=== PATIENT | male | born 1950 | race Two or more races ===

== ENCOUNTER → 2022-10-21 09:23 | Outpatient (CLI) | payer MEDICARE, SELFPAY ==
--- NOTE | 2022-10-21 09:31 | MR_ITS ---
FINAL REPORT CLINICAL HISTORY: OSTEOLYSIS. abnormal imaging at [facility]. FINDINGS: Multiplanar MR imaging of the brain was performed without and with contrast. There are mild chronic ischemic/gliotic changes. There is no evidence of intracranial hemorrhage or mass. No abnormal extra-axial fluid collection is seen. The ventricular size is within normal limits. There is no evidence of shift of the midline structures. The posterior fossa and brainstem have an unremarkable appearance. No area of abnormal restricted diffusion is identified. There is a focus of abnormal signal and contrast enhancement in the right frontal skull measuring 19 mm with a nonspecific appearance. Normal major vessel vascular flow voids are noted. IMPRESSION: Nonspecific, contrast-enhancing signal abnormality in the right frontal skull which represent metastasis or myeloma. Follow-up MRI in 3-6 months may be helpful for further evaluation. Reviewed, Interpreted and Dictated by Percy Woods III, MD Transcribed by Christine Pompa Authenticated and . [facility]
== END ==
PROVIDERS: PCP Nurse Practitioner Family; Visit Provider Nurse Practitioner Family
DX: M89.58 Osteolysis, other site (principal)
CPT/HCPCS: 70553; A9576

== ENCOUNTER 2023-08-11 08:44 | Outpatient (CLI) | payer MEDICARE, SELFPAY ==
--- NOTE | 2023-08-11 08:53 | CT_ITS ---
FINAL REPORT TECHNIQUE: Axial imaging of the chest was obtained without contrast. This study was performed with techniques to keep radiation doses as low as reasonably achievable, (ALARA). Individualized dose reduction techniques using automated exposure control or adjustment of mA and/or kV according to the patient's size were employed. CLINICAL HISTORY: LUNG NODULE COMPARISON: None FINDINGS: There is minimal scarring in the lung apices. The heart size is normal. There is no pericardial or pleural effusion. Limited images of the upper abdomen are unremarkable. No suspicious infiltrate or nodule identified. IMPRESSION: No acute process. Minimal scarring in the lung apices. Reviewed, Interpreted and Dictated by Joshua Haro MD Transcribed by Theresa Davis Authenticated and [facility]
[2023-08-11 09:12] LABS: Blood Urea Nitrogen 26 mg/dl (9-20); Estimated Glomerular Filt Rate 59 ml/min (>60); GFR (African American) 72 ML/MIN (>60)
--- NOTE | 2023-08-11 09:42 | HMH.ITSTN ---
IV STARTED ON PATIENT FOR CT WITH CONTRAST, AFTER CHECKING ORDER IT WAS FOR A CT WITHOUT CONTRAST, CALLED OFFICE TO VERIFY ORDER IT WAS INDEED WITHOUT CONTRAST. EXPLAINED TO PATIENT AND IV REMOVED, CT PERFORMED WITHOUT CONTRAST.
== END 2023-08-11 23:59 | disposition home or self-care (01) ==
LOC: RAD 08:45
PROVIDERS: PCP Nurse Practitioner Family; Visit Provider Nurse Practitioner Family
DX: R91.1 Solitary pulmonary nodule (principal)
CPT/HCPCS: 36415; 71250; 82565; 84520

== ENCOUNTER 2023-08-25 00:57 | Emergency (ER) | payer MEDICARE, SELFPAY ==
[2023-08-25 00:58] VITALS: BP 177/80; PULSE 76; RESP 17; TEMP 36.3; O2SAT 97; BMI 27.8
--- NOTE | 2023-08-25 01:23 | ED_ITS ---
Discharge Plan Disposition Patient Disposition: Home, Self-Care Prescriptions Prescriptions: New prednisone 20 mg tablet 40 mg PO DAILY 5 Days Qty: 10 0RF Referrals Follow up/Referrals: Irma Solomon APRN [Primary Care Provider] - See instructions Activity Restrictions/Add. Instructions Additional Instructions/Restrictions: You were evaluated in the emergency department today. At this time, it is felt that you likely have a contact dermatitis from the plants that you were exposed to. We have provided you with a prescription for steroids. Sometimes long steroid courses are required to prevent rebound symptoms, so I would recommend following up with your primary care doctor later on this week for reassessment to see if she feels that your prescription needs to be extended. Monitor for any worsening in symptoms or swelling despite taking these medications. Return to the emergency department for new or worsening symptoms. It is also important to note that you can sometimes develop a secondary bacterial infection or cellulitis after having inflammation and irritation of your skin like this. This is another reason to keep an eye on your symptoms and swelling. Clinical Impressions Clinical Impression: Contact dermatitis Instructions Patient Instructions: DI for Contact Dermatitis Discharge ED Provider: Ceci Hayden General Adult HPI General Chief complaint: Extremity Problem,Nontraumatic Stated complaint: right hand swelling, Time Seen by Provider: 08/25/23 01:03 Mode of Arrival: Ambulatory Source of Information: Patient Limitations: No Limitations Description of Symptoms (Recalled from ER Triage Doc. by RN): patient ambulatory to ED with complaints of right arm/hand swelling since Friday without relief. He states that he was weedeating when he thinks something bit his arm. unable to state what he thinks bit him, or locate area to which it originated. He reports that he has taken benedryl without decrease in swelling. Patient denies SOA or any other symptoms at this time. History of Present Illness HPI narrative: This patient is a 73-year-old male with history of hypertension and hyperlipidemia presented to the emergency department for evaluation with concern for swelling of his right hand and arm. Patient reports that he was weed eating Friday when he got into some brush that he believes may have been poison oak. He is not sure if that is what the cause may be or if something could have bitten him. He states he has had itching and irritation to the skin of his shoulders as well as his right arm since Friday. He is taking Benadryl at home with minimal improvement. He has significant swelling of his right arm. No fevers, chills, chest pain, shortness of breath, or other concerns. No history of blood clots or clotting disorders. Related Data Previous Rx's Medication Instructions Recorded prednisone 20 mg tablet 40 mg (2 x 20 mg) PO DAILY 5 days 08/25/23 #10 tabs Allergies Allergy/AdvReac Type Severity Reaction Status Date / Time Penicillins Allergy Mild Verified 08/25/23 01:44 [facility] Disclaimer: The information contained in this section may have been updated after the patient was seen, as this information can be updated by other users. Social History Smoking Status: Former smoker alcohol intake: never current occupational status: retired Travel in the last 8 weeks: None ROS Obtained: Yes All systems reviewed & no additional complaints except as documented Physical Exam General General appearance: alert and in no apparent distress Head Head exam: atraumatic and normocephalic Eye Eye exam: Present normal appearance, PERRL and EOMI ENT ENT exam: Present normal exam, normal oropharynx, mucous membranes moist and normal external ear exam Neck Neck exam: Present normal inspection, full ROM and trachea midline; Absent tenderness Chest Chest inspection: Present normal inspection and symmetric chest wall rise; Absent tenderness Respiratory Respiratory exam: Present normal lung sounds bilaterally; Absent respiratory distress, wheezes, stridor or accessory muscle use Cardiovascular Cardiovascular exam: Present regular rate and normal rhythm Abdominal Exam Abdominal exam: Present soft; Absent distention, tenderness or guarding Extremities Exam Extremities exam: Present full ROM, normal capillary refill and edema (Significant edema to the right hand and forearm. No erythema or warmth with some overlying excoriations. Neurovascularly intact distally with intact range of motion of his hand. No palpable fluctuance or induration.); Absent tenderness Back Exam Back exam: Present normal inspection and full ROM; Absent tenderness Neurological Exam Neurological exam: Present alert, oriented X3, CN II-XII intact and normal gait; Absent motor sensory deficit Psychiatric Psychiatric exam: Present normal affect and normal mood Skin Skin exam: Present warm, dry and rash (scattered excoriations to R forearm) Medical Decision Making Medical Records Medical records reviewed: Yes I reviewed the patient's medical records. Harley Inquiry Pt receiving controlled substance: No Vital Signs: 08/25/23 00:58 08/25/23 01:58 Temperature 97.4 F L 97.8 F Temperature Source Oral Oral Pulse Rate 61 Pulse Rate [Right] 76 Respiratory Rate 17 16 Blood Pressure 159/58 H Blood Pressure [Right Arm] 177/80 H Blood Pressure Mean [Right Arm] 112 Blood Pressure Source Automatic Cuff Blood Pressure Source [Right Arm] Automatic Cuff Blood Pressure Position Sitting 02 Sat by Pulse Oximetry 97 Oxygen Delivery Method Room Air Room Air Lab Data Lab results reviewed: Yes I reviewed the patient's lab results. Lab Results 08/25/23 01:05: WBC 5.6, RBC 4.19 L, Hgb 13.0 L, Hct 39.8 L, MCV 95.0 H, MCH 30.9, MCHC 32.6, RDW 15.1, Plt Count 178, MPV 8.2, Neut % (Auto) 71.6, Lymph % (Auto) 20.9, [place] % (Auto) 6.6, Eos % (Auto) 0.3, Baso % (Auto) 0.5, Neut # (Auto) 4.0, Lymph # (Auto) 1.2, [place] # (Auto) 0.4, Eos # (Auto) 0.0, Baso # (Auto) 0.0, Sodium 139, Potassium 4.3, Chloride 112 H, Carbon Dioxide 25, Anion Gap 6.3, BUN 29 H, Creatinine 1.30 H, Estimated Creat Clear 60, Estimated GFR 54 L, Est GFR ( Amer) 65, Glucose 108 H, Calcium 8.6, Total Bilirubin 0.8, AST 33, ALT 21, Alkaline Phosphatase 109, C-Reactive Protein 7.1 H, Total Protein 6.4, Albumin 3.9, Globulin 2.5, Albumin/Globulin Ratio 1.6 08/25/23 01:05 08/25/23 01:05 Orders (Tests/Meds): ED MEDICATIONS Discontinued Medications Generic Name Dose Route Start Last Admin Trade Name Freq PRN Reason Stop Dose Admin Prednisone 40 mg 08/25/23 01:43 08/25/23 01:49 Prednisone 20mg Tab PO 08/25/23 01:44 40 mg ONCE ONE Administration ORDERS Category Date Time Status POCUS Point of Care (ER Only) Stat Exams 08/25/23 01:08 Ordered CRP [C-Reactive Protein] Stat Lab 08/25/23 01:05 Completed Complete Blood Count Auto Diff Stat Lab 08/25/23 01:05 Results Comprehensive Metabolic Panel Stat Lab 08/25/23 01:05 Completed Erythrocyte Sedimentation Rate Stat Lab 08/25/23 01:05 Results Medical Decision Narrative: In summary, this patient is a 73-year-old male presenting to the Emergency Department for evaluation of swelling of his right arm as well as rash and itchiness. Differential diagnoses considered include but are not limited to insect bite, contact dermatitis, cellulitis, DVT. Ruling out the most morbid conditions drove assessment. It should be noted patient's history includes hypertension and hyperlipidemia which may or may not be at goal therapy. This complicates all aspects of care by increasing patient's risk for morbidity. On exam, the patient is well-appearing. He has isolated swelling to his right hand and forearm with some excoriations over his right forearm. All compartments soft. Neurovascular intact distally. No significant induration or fluctuance. workup included CBC, CMP, ESR, CRP, and bedside ultrasound. Ultrasound is negative for DVT of the right upper extremity. Veins are good and compressible. Please see procedure note for further documentation. He does have cobblestoning consistent with localized edema but no appreciable abscesses. Labs are reassuring with no significant leukocytosis. CRP is at the upper limits of normal. Based on labs and exam, no concerns for significant infection. I do feel that he likely has contact dermatitis in the setting of the recent plant exposures. At this time after shared decision-making with the patient, I feel that he is appropriate for discharge home with prescription for prednisone. He was given instructions for close follow-up with his primary care provider this week, as significant contact dermatitis often requires a long steroid taper to prevent rebound symptoms. I advise discussion with his primary care provider regarding this. I also advised to monitor for any worsening symptoms, as it is possible he could develop a secondary bacterial infection at some point. Patient is given strict return precautions and he was discharged in stable condition after all questions were answered. Procedures Limited Ultrasound Findings:: Limited soft tissue ultrasound Indication: Soft tissue swelling Identified structures: Location: Right hand/forearm Findings: Cobblestoning consistent with localized edema Impression: Cobblestoning consistent with localized edema Images were saved to permanent archive The study was technically adequate Soft Tissue CPT Codes: CPT Upper extremity: 66879-42 This study was performed by me, and I personally interpreted all images/videos. Based on my clinical judgement, these images were adequate and not necessitate further imaging. Interpretation:: Limited DVT ultrasound Indication: Limited compression ultrasonography of the right upper extremity was performed to evaluate for non-compressibility of the deep veins in the patient. The ultrasound was performed with the following indications, as noted in the H&P: Right arm swelling Identified structures: Right [Ulnar vein, radial vein, cephalic vein, basilic vein, axillary vein.] Findings: Upper extremity: Right UV: Good compressibility Right RV: Good compressibility Right Cephalic vein: Good compressibility Right Basilic vein: Good compressibility Right Axillary vein: Good compressibility Impression: Normal right upper extremity DVT ultrasound Images were saved to permanent archive The study was technically adequate CPT: 71273-34-OY [id number] This study was performed by me, and I personally interpreted all images/videos. Based on my clinical judgement, these images were adequate and did not necessitate further imaging. Critical Care Critical Care Time Critical Care Time: No
[2023-08-25 01:24] LABS: Basophils % 0.5 % (0.1-2.0); Chloride 112 mmol/L (98-107); Eosinophils % 0.3 % (0.1-12.0); Hematocrit 39.8 % (42.0-52.0); Lymphocytes # 1.2 K/mm3 (0.7-4.5); Lymphocytes % 20.9 % (10-50); Mean Corpuscular HGB Conc 32.6 g/dL (31.8-35.4); Mean Corpuscular Hemoglobin 30.9 pg (27.0-31.2); Mean Platelet Volume 8.2 fl (7.4-10.4); Monocytes # 0.4 K/mm3 (0.1-1.0); Monocytes % 6.6 % (1.7-9.3); Neutrophils % 71.6 % (37.0-80.0); Platelet Count 178 K/mm3 (142-424); Potassium 4.3 mmoL/L (3.5-5.1); Red Blood Count 4.19 M/mm3 (4.60-6.20); Red Cell Distribution Width 15.1 % (11.5-17.5); Sodium 139 mmol/L (136-145); White Blood Count 5.6 K/mm3 (4.8-10.8)
[2023-08-25 01:26] LABS: Alanine Aminotransferase 21 U/L (12-78); Aspartate Amino Transferase 33 U/L (17-59); Blood Urea Nitrogen 29 mg/dl (9-20); Creatinine Clearance Estimated 60 mL/min (50-200); Estimated Glomerular Filt Rate 54 ml/min (>60); GFR (African American) 65 ML/MIN (>60)
[2023-08-25 01:27] LABS: Albumin Level 3.9 g/dl (3.5-5.0); Albumin/Globulin Ratio 1.6 (1.1-1.8); Alkaline Phosphatase 109 U/L (38-126); Anion Gap 6.3 mEq/L (5-15); Bilirubin,Total 0.8 mg/dl (0.2-1.3); Calcium 8.6 mg/dl (8.4-10.2); Carbon Dioxide 25 mmol/L (22.0-30.0); Globulin 2.5 g/dL (1.3-3.2); Glucose 108 mg/dl (74-100); Total Protein,Serum 6.4 g/dl (6.3-8.2)
[2023-08-25 01:32] LABS: C-Reactive Protein 7.1 mg/L (0-4)
[2023-08-25] MEDS: predniSONE 20MG TAB 40 MG PO (01:49)
--- NOTE | 2023-08-25 01:54 | PC.NURSE ---
on phone with JULIANA
[2023-08-25 01:58] VITALS: BP 159/58; PULSE 61; RESP 16; TEMP 36.6; O2SAT 94
[2023-08-25 02:22] LABS: Erythrocyte Sedimentation Rate 16 mm/hr (0-20)
== END 2023-08-25 01:58 | disposition home or self-care (01) ==
PROVIDERS: Emergency Provider Emergency Medicine; PCP Nurse Practitioner Family
DX: L25.9 Unspecified contact dermatitis, unspecified cause (principal); R22.31 Localized swelling, mass and lump, right upper limb; I10 Essential (primary) hypertension; E78.5 Hyperlipidemia, unspecified
CPT/HCPCS: 80053; 85025; 85651; 86140; 99284

== ENCOUNTER 2024-03-29 16:48 | Outpatient (CLI) | payer MEDICARE, SELFPAY ==
[2024-03-29 15:23] LABS: Microscopic, Urine URINE MICROSCOPIC (MICROSCOPIC)
[2024-03-29 15:59] LABS: Appearance,Urine CLEAR (Clear); Bilirubin,Urine Negative (Negative); Blood, Urine Negative (Negative); Color,Urine YELLOW (Yellow); Glucose,Urine (UA) Negative (Negative); Ketones,Urine Negative (Negative); Leukocyte Esterase,Urine 1+ (Negative); Nitrate,Urine Negative (Negative); Protein,Urine Negative (Negative); Urobilinogen,Urine 0.2 EU/dl (0.2)
[2024-03-29 16:39] LABS: Bacteria,Urine 2+ /lpf
== END 2024-03-29 23:59 | disposition home or self-care (01) ==
LOC: LAB.DROPOF 16:48
PROVIDERS: PCP Urology; Visit Provider Urology
DX: N39.0 Urinary tract infection, site not specified (principal)
CPT/HCPCS: 81001; 87086; 87088; 87186

== ENCOUNTER 2024-04-05 10:55 | Outpatient (CLI) | payer MEDICARE, SELFPAY ==
[2024-04-05 11:51] LABS: Blood Urea Nitrogen 32 mg/dl (9-20); Estimated Glomerular Filt Rate 54 ml/min (>60); GFR (African American) 65 ML/MIN (>60)
[2024-04-06 08:52] LABS: PSA, Free 0.42 ng/mL; Prostate Specific Ag 2.3 ng/mL (0.0-4.0)
== END 2024-04-05 23:59 | disposition home or self-care (01) ==
LOC: LAB 10:56
PROVIDERS: PCP Nurse Practitioner Family; Visit Provider Urology
DX: N40.2 Nodular prostate without lower urinary tract symptoms (principal); N42.89 Other specified disorders of prostate; N39.0 Urinary tract infection, site not specified
CPT/HCPCS: 36415; 82565; 84153; 84154; 84520

== ENCOUNTER 2024-08-23 16:00 | Outpatient (CLI) | payer MEDICARE, SELFPAY ==
[2024-08-23 14:40] LABS: Microscopic, Urine URINE MICROSCOPIC (MICROSCOPIC)
[2024-08-23 15:12] LABS: Appearance,Urine CLEAR (Clear); Bilirubin,Urine Negative (Negative); Blood, Urine TRACE-L (Negative); Color,Urine YELLOW (Yellow); Glucose,Urine (UA) Negative (Negative); Ketones,Urine Negative (Negative); Leukocyte Esterase,Urine 1+ (Negative); Nitrate,Urine Negative (Negative); Protein,Urine TRACE (Negative)
[2024-08-23 15:55] LABS: Bacteria,Urine Trace /lpf; RBC,Urine Occasional #/hpf (0-3)
== END 2024-08-23 23:59 | disposition home or self-care (01) ==
LOC: LAB.DROPOF 08-24 10:59
PROVIDERS: PCP Urology; Visit Provider Urology
DX: N39.0 Urinary tract infection, site not specified (principal)
CPT/HCPCS: 81001; 87086

== ENCOUNTER 2024-08-25 10:22 | Outpatient (CLI) | payer MEDICARE, SELFPAY ==
--- OUTSIDE RECORDS SUMMARY | 2024-08-25 10:25 | XMS_ITS | Data Portability ---
Author Organization [facility] CHERELLE Juarez [place] CLOSED Address [address] [place] [address] Care Team Providers Care Orchestra Director Name Role Phone HARLEY ESCALONA Primary Care Provider Assessment Encounter Date Assessment Date Assessment LastModified by Organization Details LastModified Time 04/09/2021 04/09/2021 SURGERY DATE: PREOPERATIVE DIAGNOSIS: Elevated PSA. POSTOPERATIVE DIAGNOSIS: Elevated PSA. PROCEDURE: Transrectal ultrasound biopsy of the prostate. SURGEON: Camden Tong MD OPERATIVE NOTE: The patient was placed on his left side. Ultrasound probe was inserted without difficulty. 1% xylocaine was injected at the base of the prostate on both sides. Prostate measured 41.5 mm in width, 26.6 mm in height, length 38 mm, volume was 22 cm3. Six random biopsies were taken from the left and 6 random biopsies were taken from the right. There was minimal bleeding. Ultrasound probe was removed. The patient tolerated the procedure well, left the operating room in satisfactory condition. [email or web address] Not available 04/09/2021 14:21:48 Plan of Treatment Reminders Order Date Submit Date Provider Last Modified By Organization Details Last Modified Time Details Appointments None recorded . Lab urinalys is panel, auto 2020 021 [facility], [address], [facility] [address], [place], [address], 13:38:49 Referral None recorded . Procedures biopsy, prostate , needle (PROC) - 83044, 47949, 40542 -- PROSTATE BIOPSY -- LOCAL 2020 021 ana [facility], [address] [facility] [address] [facility], [facility] [address], [place], [address], 12:43:08 Surgeries None recorded . Imaging None recorded . Medication Orders levoflox acin 500 mg tablet 2020 021 SAMANTHA [facility], [address], [place], [address], 10:43:02 Patient TargetsNo targets recorded. Patient Instructions Encounter Date Encounter Id Patient Instructions Last Modified By Organization Details Last Modified Time 04/12/2021 [id number] learning about healthy weight cinthiaadnathan Not available 04/12/2021 16:01:24 Reason for Referral None Reported. Results Created Date Observation Date Name Description Value Unit Range Abnormal Flag Note LastModifiedBy Organization Detail LastModifiedTime 03/27/20 21 03/27/2021 urina lysis panel , auto Unknown Analyte Clean Catch Not Available [facility] [address], [place], [address], 03/27/2021 10:54:39 03/27/20 21 03/27/2021 urina lysis panel , auto Unknown Analyte Yellow Not Available [facility] [address], [place], [address], 03/27/2021 10:54:39 03/27/20 21 03/27/2021 urina lysis panel , auto Unknown Analyte Clear Not Available [facility] [address], [place], [address], 03/27/2021 10:54:39 03/27/20 21 03/27/2021 urina lysis panel , auto Unknown Analyte 1.005 Not Available [facility] [address], [place], [address], 03/27/2021 10:54:39 03/27/20 21 03/27/2021 urina lysis panel , auto Unknown Analyte 1.003- 1.035 Not Available [facility] [address], [place], [address], 03/27/2021 10:54:39 03/27/20 21 03/27/2021 urina lysis panel , auto Unknown Analyte 7.0 Not Available [facility] [address], [place], [address], 03/27/2021 10:54:39 03/27/2003/27/2021 urina lysis panel , auto Unknown Analyte 5.0-8. 0 Not Available [facility] [address], [place], [address], 03/27/2021 10:54:39 03/27/20 21 03/27/2021 urina lysis panel , auto Unknown Analyte Negati ve Not Available [facility] [address], [place], [address], 03/27/2021 10:54:39 03/27/20 21 03/27/2021 urina lysis panel , auto Unknown Analyte Negati ve Not Available [facility] [address], [place], [address], 03/27/2021 10:54:39 03/27/20 21 03/27/2021 urina lysis panel , auto Unknown Analyte Negati ve Not Available [facility] [address], [place], [address], 03/27/2021 10:54:39 03/27/20 21 03/27/2021 urina lysis panel , auto Unknown Analyte Negati ve Not Available [facility] [address], [place], [address], 03/27/2021 10:54:39 03/27/20 21 03/27/2021 urina lysis panel , auto Unknown Analyte Negati ve Not Available [facility] [address], [place], [address], 03/27/2021 10:54:39 03/27/2003/27/2021 urina lysis panel , auto Unknown Analyte Negati ve Not Available [facility] [address], [place], [address], 03/27/2021 10:54:39 03/27/20 21 03/27/2021 urina lysis panel , auto Unknown Analyte Normal Not Available [facility] [address], [place], [address], 03/27/2021 10:54:39 03/27/20 21 03/27/2021 urina lysis panel , auto Unknown Analyte Normal Not Available [facility] [address], [place], [address], 03/27/2021 10:54:39 03/27/20 21 03/27/2021 urina lysis panel , auto Unknown Analyte Negati ve Not Available [facility] [address], [place], [address], 03/27/2021 10:54:39 03/27/20 21 03/27/2021 urina lysis panel , auto Unknown Analyte Negati ve Not Available [facility] [address], [place], [address], 03/27/2021 10:54:39 03/27/20 21 03/27/2021 urina lysis panel , auto Unknown Analyte 1 mg/dl Not Available [facility] [address], [place], [address], 03/27/2021 10:54:39 03/27/20 21 03/27/2021 urina lysis panel , auto Unknown Analyte Normal 1 mg/dl Not Available [facility] [address], [place], [address], 03/27/2021 10:54:39 03/27/20 21 03/27/2021 urina lysis panel , auto Unknown Analyte Negati ve Not Available [facility] [address], [place], [address], 03/27/2021 10:54:39 03/27/20 21 03/27/2021 urina lysis panel , auto Unknown Analyte Negati ve Not Available [facility] [address], [place], [address], 03/27/2021 10:54:39 03/27/20 21 03/27/2021 urina lysis panel , auto Unknown Analyte Negati ve Not Available [facility] [address], [place], [address], 03/27/2021 10:54:39 03/27/20 21 03/27/2021 urina lysis panel , auto Unknown Analyte Negati ve Not Available [facility] [address] [facility] [address], [place], [address], 03/27/2021 10:54:39 04/09/20 21 04/09/2021 SURGI PAT surgical SEE BELOW Depar tment of Patho logy Surgi pat Patho logy Repor t NAME: CARINE BISWAS PATH. :SS-2 1-123 12 Copy to: Diagn osis: A) Right prost ate, needl e core biops y: - Benig n prost atic tissu e B) Left prost ate, needl e core biops y: - Benig n prost atic tissu e SOURC E OF SPECI MEN: PROST ATE , RIGHT PROST ATE , LEFT CLINI PAT INFOR MATIO N: PROST ATE NODUL E / PSA LEVEL - 3.53 Gross Descr iptio n: A) Recei alexis in forma juan label ed with the patie nt's name and desig nated as righ t prost ate biops y are eight thin cores of jones-w kirby tissu e measu ring 0.3, 0.5, (2)1. 4, 1.5, 1.6, 1.7 and 2.0 cm in lengt h. Entir sheng submi tted in two casse ttes. B) Recei alexis in forma juan label ed with the patie nt's name and desig nated as left prost ate biops y are seven thin cores of jones-w kirby tissu e measu ring 0.2, (2)1. 6, 1.9, (2)2. 0 and 2.1 cm in lengt h. Entir sheng submi tted in two casse ttes. MT 04/09 02:40 PM Micro scopi c Descr iptio n: Micro scopi c exami natio n perfo rmed. Rare atypi pat acini are seen. PIN4 immun ohist ochem ical stain s revie wed with a prope rly worki ng contr ol are negat landry for adeno carci noma. This test was devel oped and its perfo rmanc e corey cteri stics deter mined by the [facility] . It has not been clear ed or appro alexis by the [place] Food and Drug Admin istra tion (FDA) . The FDA has deter mined that such clear ance or appro heath is not neces linda. These tests are used solel y for clini pat purpo ses. They shoul d not be regar ded as inves tigat ional or for resea rch. This labor atory is regul ated under the Clini pat Labor atory Impro vemen t Amend ments of 1987 (CLIA ' 88), as quali fied to perfo rm high compl exity testi ng. JAYCOB TRAVISSHENG DUNAWAY MD Shy d Out Date: 04/10 14:44 Page 1 of 1 Not Available [facility] [address] [place], [address], 04/10/2021 14:45:47 Result Notes None recorded. Procedures Surgical History Date Name Laterality Status Provider Name and Address Organization Details Recorded Time partial repair of rotator cuff completed [facility] 03/27/2021 10:53:50 Back Surgery completed [facility] 03/27/2021 10:53:55 Imaging Results None recorded. Procedure Notes None recorded. Medical Equipment None Reported. Allergies Allergen ID Allergen Name Allergen Category Reaction Reaction Severity Criticality Documentation Date Start Date Code Code System Note Provider Name and Address Organization Details Recorded Time 164020 Product containin g penicilli n (product) medicatio n Not available Not available Not available 03/27/2021 06276 8001 SNOMED [facility] 10:52:52 Medications Name Sig Start Date Stop Date Status Note LastModified by Organization Details LastModified Time levofloxacin 500 mg tablet Take 1 tablet every 24 hours by oral route. 021 active Not Available Not Available Not Avai lable Vitamin C active Not Available Not Alma Delia ilable Not Available IBU active Not Available Not Availa ble Not Available Vitals Date Recorded Body height Body mass index (BMI) Body weight Provider Name and Address Organization Details Last Updated DateTime 03/27/2021 177.8 cm 26.4 kg/m2 [id number] yessenia Fraga [facility] 03/27/2021 10:52:45 Date Recorded Body height Body mass index (BMI) Body weight Provider Name and Address Organization Details Last Updated DateTime 04/12/2021 177.8 cm 26.4 kg/m2 [id number] [facility] 04/12/2021 15:47:24 Social History Question Answer Notes LastModified by Organizat ion Details LastModified Time Tobacco Smoking Status Never Smoker [facility] 03/27/2021 10:53:37 What Is Your Level Of Alcohol Consumption? Occasional Information not available 03/27/2021 Do You Or Have You Ever Used E-cigarettes Or Vape? Never Used Electronic Cigarettes Information not available 03/27/2021 What Was The Date Of Your Most Recent Tobacco Screening? 04/12/2021 [email or web address] Information not available 04/12/2021 What Is Your Relationship Status? Information not available 03/27/2021 Do You Or Have You Ever Used Smokeless Tobacco? Currently Chews Tobacco Information not available 03/27/2021 Do You Or Have You Ever Used Any Other Forms Of Tobacco Or Nicotine? Yes Information not available 03/27/2021 Sex: Unknown Functional Status None recorded. Mental Status None recorded. Family History Relationship Description Onset Age of this Age Resolved Age Notes LastModified by Organization Details LastModified Time Unspecified Relation Diabetes mellitus Not available 2020 10:53:15 Medical History Condition Response Allergies/Hayfever Y Acid Reflux (GERD) Y Arthritis Y Hypertension Y Thyroid Disorder Y Past Encounters Encounter ID Performer Location Encounter Start Date Encounter Closed Date Diagnosis/Indication Diagnosis SNOMED-CT Code Diagnosis ICD10 Code Diagnosis Note [id number] MD [facility] [address] [place] [address] 03/27/2021 09:18:00 03/27/2021 10:42:35 Prostate nodule 1267422939 36696 N40.2 [id number] CAMDEN TONG MD SURGERY SCHEDULE [address] [place] [address] 04/09/2021 09:05:16 04/09/2021 09:05:39 [id number] MD [facility] [address] [place] [address] 04/12/2021 15:43:54 04/12/2021 15:56:47 Prostate nodule 5898759264 83332 N40.2 Benign pro static hyperplasia without outflow obstruction 242990073 N40.0 Health Concerns Section Related Observation LastModified by Organization Detai ls LastModified Time None Recorded Concern Status LastModified by Organization Details LastModified Time None Recorded Advance Directives Directive None Recorded Payers Insurance Date Sequence Insurance Name Policy Number Policy Thurston Covered Member ID Thurston Member ID Guarantor Name 04/09/2021 1 [place] Carine Peters [id number] Carine Peters 04/18/2021 2 [facility] (MEDICARE SUPPLEMENT) Carine Peters [id number] Carine Peters Notes Date Note Type Note Provider Name and Address Organization Details Recorded Time 03/27/2021 text/html 70-year-old gentleman who had a recent colonoscopy. Prostate nodule was discovered. PSAs 3..53 There is no history of previous prostate problems.he voids with a good stream and feels like he empties his bladder easily. There is no hesitancy or urgency. He denies nocturia. There is no back or abdominal pain CAMDEN TONG MD [address] [place] [address], [address], [facility] 03/27/2021 13:04:28 04/12/2021 text/html prostate biopsie s were negative his PSA was 3.53. Prostate nodule was found. He voids with a good stream not have any hematuria or dysuria. There is no hesitancy or urgency. We will reevaluate in 6 months CAMDEN TONG MD [address] [place] [address], [address], [facility] 04/12/2021 16:02:03
--- NOTE | 2024-08-25 10:30 | US_ITS ---
FINAL REPORT TECHNIQUE: Sonographic images of the testicles and scrotum were obtained in the longitudinal and transverse planes. CLINICAL HISTORY: Left testicle swelling -- recent UTI COMPARISON: None FINDINGS: The right testicle measures 4.8 x 2.4 x 3.1 centimeters. There is no intratesticular mass. The epididymis is within normal limits. No extratesticular mass is identified. Blood flow is present. There is no evidence of torsion. The left testicle measures 4.1 x 2.1 x 3.0 centimeters. There is no intratesticular mass. The epididymis is within normal limits. No extratesticular mass is identified. There is a small left hydrocele. There is mild left scrotal skin thickening. There is no evidence of torsion. IMPRESSION: No intratesticular mass or evidence of testicular torsion. Small left hydrocele and left scrotal edema, inflammatory process not excluded. Reviewed, Interpreted and Dictated by Liz Quach MD Transcribed by Ludmila Strickland Authenticated and [facility]
== END 2024-08-25 23:59 | disposition home or self-care (01) ==
LOC: RAD 10:23
PROVIDERS: PCP Nurse Practitioner Family; Visit Provider Urology
DX: N45.1 Epididymitis (principal)
CPT/HCPCS: 76870

== ENCOUNTER 2024-08-30 10:45 | Outpatient (CLI) | payer MEDICARE, SELFPAY ==
--- OUTSIDE RECORDS SUMMARY | 2024-08-30 10:48 | XMS_ITS | Data Portability ---
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 Procedures biopsy, prostate , needle (PROC) - 14661, 63987, 59953 -- PROSTATE BIOPSY -- LOCAL 2020 021 ana [facility] Professional Charges, [address], [facility] [address], [place], [address], 12:43:08 Surgeries None recorded . Imaging None recorded . Medication Orders levoflox acin 500 mg tablet 2020 021 SAMAN[facility], [address], [place], [address], 10:43:02 Patient TargetsNo targets recorded. Patient Instructions Encounter Date Encounter Id Patient Instructions Last Modified By Organization Details Last Modified Time 04/12/2021 [id number] learning about healthy weight cinthiaadnathan Not available 04/12/2021 16:01:24 Reason for Referral None Reported. Results Created Date Observation Date Name Description Value Unit Range Abnormal Flag Note LastModifiedBy Organization Detail LastModifiedTime 03/27/20 21 03/27/2021 urina lysis panel , auto Unknown Analyte Clean Catch Not Available [facility] [address], [place], [address], 03/27/2021 10:54:39 03/27/20 21 03/27/2021 urina lysis panel , auto Unknown Analyte Yellow Not Available [facility] [address], [place], [address], 03/27/2021 10:54:39 03/27/20 21 03/27/2021 urina lysis panel , auto Unknown Analyte Clear Not Available [facility] [address], [place], [address], 03/27/2021 10:54:39 03/27/20 21 03/27/2021 urina lysis panel , auto Unknown Analyte 1.005 Not Available [facility] [address], [place], [address], 03/27/2021 10:54:39 03/27/20 21 03/27/2021 urina lysis panel , auto Unknown Analyte 1.003- 1.035 Not Available [facility] [address], [place], [address], 03/27/2021 10:54:39 03/27/20 21 03/27/2021 urina lysis panel , auto Unknown Analyte 7.0 Not Available [facility] [address], [place], [address], 03/27/2021 10:54:39 03/27/2003/27/2021 urina lysis panel , auto Unknown Analyte 5.0-8. 0 Not Available [facility] [address], [place], [address], 03/27/2021 10:54:39 03/27/20 21 03/27/2021 urina lysis panel , auto Unknown Analyte Negati ve Not Available [facility] [address], [place], [address], 03/27/2021 10:54:39 03/27/20 21 03/27/2021 urina lysis panel , auto Unknown Analyte Negati ve Not Available [facility] [address], [place], [address], 03/27/2021 10:54:39 03/27/20 21 03/27/2021 urina lysis panel , auto Unknown Analyte Negati ve Not Available [facility] [address], [place], [address], 03/27/2021 10:54:39 03/27/20 21 03/27/2021 urina lysis panel , auto Unknown Analyte Negati ve Not Available [facility] [address], [place], [address], 03/27/2021 10:54:39 03/27/20 21 03/27/2021 urina lysis panel , auto Unknown Analyte Negati ve Not Available [facility] [address], [place], [address], 03/27/2021 10:54:39 03/27/2003/27/2021 urina lysis panel , auto Unknown Analyte Negati ve Not Available [facility] [address], [place], [address], 03/27/2021 10:54:39 03/27/20 21 03/27/2021 urina lysis panel , auto Unknown Analyte Normal Not Available [facility] [address], [place], [address], 03/27/2021 10:54:39 03/27/20 21 03/27/2021 urina lysis panel , auto Unknown Analyte Normal Not Available [facility] [address], [place], [address], 03/27/2021 10:54:39 03/27/20 21 03/27/2021 urina lysis panel , auto Unknown Analyte Negati ve Not Available [facility] [address], [place], [address], 03/27/2021 10:54:39 03/27/20 21 03/27/2021 urina lysis panel , auto Unknown Analyte Negati ve Not Available [facility] [address], [place], [address], 03/27/2021 10:54:39 03/27/20 21 03/27/2021 urina lysis panel , auto Unknown Analyte 1 mg/dl Not Available [facility] [address], [place], [address], 03/27/2021 10:54:39 03/27/20 21 03/27/2021 urina lysis panel , auto Unknown Analyte Normal 1 mg/dl Not Available [facility] [address], [place], [address], 03/27/2021 10:54:39 03/27/20 21 03/27/2021 urina lysis panel , auto Unknown Analyte Negati ve Not Available [facility] [address], [place], [address], 03/27/2021 10:54:39 03/27/20 21 03/27/2021 urina lysis panel , auto Unknown Analyte Negati ve Not Available [facility] [address], [place], [address], 03/27/2021 10:54:39 03/27/20 21 03/27/2021 urina lysis panel , auto Unknown Analyte Negati ve Not Available [facility] [address], [place], [address], 03/27/2021 10:54:39 03/27/20 21 03/27/2021 urina lysis panel , auto Unknown Analyte Negati ve Not Available [facility] [address] [facility] [facility] [address], [place], [address], 03/27/2021 10:54:39 04/09/20 21 04/09/2021 SURGI PAT [...] [facility] [address] [place], [address], 04/10/2021 14:45:47 Result Notes None recorded. Procedures Surgical History Date Name Laterality Status Provider Name and Address Organization Details Recorded Time partial repair of rotator cuff completed [facility] 03/27/2021 10:53:50 Back Surgery completed [facility] 03/27/2021 10:53:55 Imaging Results None recorded. Procedure Notes None recorded. Medical Equipment None Reported. Allergies Allergen ID Allergen Name Allergen Category Reaction Reaction Severity Criticality Documentation Date Start Date Code Code System Note Provider Name and Address Organization Details Recorded Time 252634 Product containin g penicilli n (product) medicatio n Not available Not available Not available 03/27/2021 [id number] [id number] SNOMED [facility] 10:52:52 Medications Name Sig Start Date Stop [...] Updated DateTime 03/27/2021 177.8 cm 26.4 kg/m2 [id number] yessenia Fraga [facility] 03/27/2021 10:52:45 Date Recorded Body height Body mass index (BMI) Body weight Provider Name and Address Organization Details Last Updated DateTime 04/12/2021 177.8 cm 26.4 kg/m2 44776 yessenia Jon [facility] 04/12/2021 15:47:24 Social History Question Answer Notes LastModified by Organizat [employer] Details LastModified Time Tobacco Smoking Status Never Smoker Lia Fraga [facility] 03/27/2021 10:53:37 What Was The Date Of Your Most Recent Tobacco Screening? 04/12/2021 [email or web address] Information not available 04/12/2021 What Is Your Relationship Status? Information not available 03/27/2021 Sex: Unknown Functional Status Question Answer Note LastModified by Organizat ion Details LastModified Time Do you or have you ever used any other forms of tobacco or nicotine? Yes Information not available 03/27/2021 What is your level of alcohol consumption? Occasional Information not available 03/27/2021 Do you or have you ever used smokeless tobacco? Currently chews tobacco Information not available 03/27/2021 Do you or have you ever used e-cigarettes or vape? Never used electronic cigarettes Information not available 03/27/2021 Mental Status None recorded. Family History Relationship [...] SNOMED-CT Code Diagnosis ICD10 Code Diagnosis Note [id number] CAMDEN TONG MD [facility] [address] [place] [address] 03/27/2021 09:18:00 03/27/2021 10:42:35 Prostate nodule [id number] 85374 N40.2 [id number] CAMDEN TONG MD SURGERY SCHEDULE [facility] [place] [address] 04/09/2021 09:05:16 04/09/2021 09:05:39 [id number] CAMDEN TONG MD [facility] [address] [place] [address] 04/12/2021 15:43:54 04/12/2021 15:56:47 Prostate nodule [id number] 71580 N40.2 Benign pro static hyperplasia without outflow obstruction [id number] N40.0 Health Concerns Section Related Observation LastModified by Organization Detai ls LastModified Time None Recorded Concern Status LastModified by Organization Details LastModified Time None Recorded Advance Directives Directive None Recorded Payers Insurance Date Sequence Insurance Name Policy Number Policy [place] Covered Member ID [place] Member ID Guarantor Name 04/09/2021 1 [place] Carine Peters [id number] Carine Peters 04/18/2021 2 [employer] HE[employer] OPTIONS (MEDICARE SUPPLEMENT) Carine Peters [id number] Carine Peters Notes Date Note Type Note [...] back or abdominal pain CAMDEN TONG MD [address] [place] [address], [address], [facility] 03/27/2021 13:04:28 04/12/2021 text/html prostate biopsie s were negative his PSA was 3.53. Prostate nodule was found. He voids with a good stream not have any hematuria or dysuria. There is no hesitancy or urgency. We will reevaluate in 6 months CAMDEN TONG MD [address] [place] [address], [address], [facility] 04/12/2021 16:02:03
[2024-08-30 12:29] LABS: Anion Gap 10.4 mEq/L (5-15); Blood Urea Nitrogen 27 mg/dl (9-20); Carbon Dioxide 25 mmol/L (22.0-30.0); Chloride 108 mmol/L (98-107); Estimated Glomerular Filt Rate 54 ml/min (>60); GFR (African American) 65 ML/MIN (>60); Potassium 4.4 mmoL/L (3.5-5.1); Sodium 139 mmol/L (136-145)
[2024-08-30 15:42] LABS: Microscopic, Urine URINE MICROSCOPIC (MICROSCOPIC)
[2024-08-30 16:21] LABS: Bilirubin,Urine Negative (Negative); Blood, Urine 1+ (Negative); Color,Urine YELLOW (Yellow); Glucose,Urine (UA) Negative (Negative); Ketones,Urine Negative (Negative); Leukocyte Esterase,Urine 3+ (Negative); Nitrate,Urine Negative (Negative); Protein,Urine TRACE (Negative); Urobilinogen,Urine 0.2 EU/dl (0.2)
[2024-08-30 16:22] LABS: Appearance,Urine Cloudy (Clear)
[2024-08-30 18:39] LABS: Bacteria,Urine 4+ /lpf; Squamous Epithelial Cell,Urine Occasional #/hpf (0-5); WBC,Urine 20-50 #/hpf (0-3)
== END 2024-08-30 23:59 | disposition home or self-care (01) ==
LOC: LAB 10:46
PROVIDERS: PCP Nurse Practitioner Family; Visit Provider Urology
DX: N39.0 Urinary tract infection, site not specified (principal); N45.1 Epididymitis; B96.20 Unspecified Escherichia coli [E. coli] as the cause of diseases classified elsewhere
CPT/HCPCS: 36415; 80051; 81001; 82565; 84520; 87086; 87088; 87186